=== PATIENT | female | born 1930 | race Caucasian/White ===

== ENCOUNTER 2017-04-13 22:28 | Emergency (ER) | payer OTHER ==
[~2017-04-13 22:28] MED LIST: FOSA35TA2 PO
[2017-04-13 22:30] VITALS: BP 196/93; PULSE 73; RESP 16; TEMP 98.5; O2SAT 96
[2017-04-13 22:56] VITALS: BP 177/94; PULSE 81; RESP 18; O2SAT 96
--- NOTE | 2017-04-13 23:01 | PD ---
HPI Chief Complaint: Respiratory Symptoms Time Seen by Provider: 22:46 Travel History International Travel<30 days: No Contact w/Intl Traveler<30days: No Traveled to known affect area: No History of Present Illness HPI Patient is an 86-year-old female who reports that she has a cough and shortness of breath for the last few days. She reports that this started about a month ago at which time she was given a Z-Bashir by her doctor and her symptoms cleared up. Now after about a month it has returned she has a cough rattling like mild shortness of breath denies she rested her distress she is not currently taking any medication she denies any past medical history of significance however triage her blood pressure is 177/83. She denies fever she denies sore throat she does have some nasal congestion and she has not seen another doctor for this recurrent episode she took 2 aspirin today to lower her temperature PFSH Past Medical History Medical History: Denies Significant Hx Diminished Hearing: No Past Surgical History Surgical History: No Previous Surgery Social History Alcohol Use: No Tobacco Use: No Substance Use: No Allergies-Medications (Allergen,Severity, Reaction): Coded Allergies: codeine (Unverified Adverse Reaction, Unknown, Flushing, 04/13/17) Reported Meds & Prescriptions Reported Meds & Active Scripts Active Guaifenesin Liq (Guaifenesin) 100 mg/5 ML Soln 100 Mg PO Q6H PRN Prednisone 50 Mg Tab 50 Mg PO DAILY Atrovent HFA 12.9 GM Inh (Ipratropium Clubb) 17 Mcg/Actuation Aer 2 Puff INH Q6HR PRN Levaquin (Levofloxacin) 500 Mg Tablet 500 Mg PO DAILY 7 Days Review of Systems Except as stated in HPI: all other systems reviewed are Neg Respiratory: Positive: Cough, Shortness of Breath Physical Exam Narrative GENERAL: no apparent distress nor signs of sepsis SKIN: Warm and dry. HEAD: Atraumatic. Normocephalic. EYES: Pupils equal and round. No scleral icterus. No injection or drainage. ENT: No nasal bleeding or discharge. Mucous membranes pink and moist. NECK: Trachea midline. No JVD. CARDIOVASCULAR: Regular rate and rhythm. RESPIRATORY: No accessory muscle use. crackles LLL minimal SAt O2 95 % RA GASTROINTESTINAL: Abdomen soft, non-tender, nondistended. Hepatic and splenic margins not palpable. MUSCULOSKELETAL: Extremities without clubbing, cyanosis, or edema. No obvious deformities. NEUROLOGICAL: Awake and alert. No obvious cranial nerve deficits. Motor grossly within normal limits. Five out of 5 muscle strength in the arms and legs. Normal speech. PSYCHIATRIC: Appropriate mood and affect; insight and judgment normal. Data Data Last Documented VS Orders Orders Guaifen-Cod 200-20 Mg/10ml Liq (Robituss (04/13/17 23:15) Prednisone (Deltasone) (04/13/17 23:15) Ipratropium Neb (Atrovent Neb) (04/13/17 23:15) Chest, Pa & Lat (04/13/17 ) Influenzae A/B Antigen (04/13/17 23:04) Group A Rapid Strep Screen (04/13/17 23:04) Guaifenesin Liq (Robitussin Liq) (04/13/17 23:30) Strep Culture (Group A) (04/13/17 23:00) Complete Blood Count With Diff (04/14/17 00:10) Comprehensive Metabolic Panel (04/14/17 00:10) Blood Culture (04/14/17 00:10) Levofloxacin 750 Mg Premix Inj (Levaquin (04/14/17 00:15) Ed Discharge Order (04/14/17 01:42) Labs Laboratory Tests Test 04/14/17 00:15 White Blood Count 3.1 TH/MM3 Red Blood Count 3.81 MIL/MM3 Hemoglobin 11.8 GM/DL Hematocrit 35.0 % Mean Corpuscular Volume 91.8 FL Mean Corpuscular Hemoglobin 31.0 PG Mean Corpuscular Hemoglobin Concent 33.7 % Red Cell Distribution Width 13.7 % Platelet Count 210 TH/MM3 Mean Platelet Volume 7.9 FL Neutrophils (%) (Auto) 59.3 % Lymphocytes (%) (Auto) 21.8 % Monocytes (%) (Auto) 14.1 % Eosinophils (%) (Auto) 4.2 % Basophils (%) (Auto) 0.6 % Neutrophils # (Auto) 1.8 TH/MM3 Lymphocytes # (Auto) 0.7 TH/MM3 Monocytes # (Auto) 0.4 TH/MM3 Eosinophils # (Auto) 0.1 TH/MM3 Basophils # (Auto) 0.0 TH/MM3 CBC Comment DIFF FINAL Differential Comment Blood Urea Nitrogen 18 MG/DL Creatinine 1.01 MG/DL Random Glucose 105 MG/DL Total Protein 6.9 GM/DL Albumin 3.4 GM/DL Calcium Level 8.4 MG/DL Alkaline Phosphatase 59 U/L Aspartate Amino Transf (AST/SGOT) 31 U/L Alanine Aminotransferase (ALT/SGPT) 23 U/L Total Bilirubin 0.2 MG/DL Sodium Level 140 MEQ/L Potassium Level 4.4 MEQ/L Chloride Level 107 MEQ/L Carbon Dioxide Level 26.8 MEQ/L Anion Gap 6 MEQ/L Estimat Glomerular Filtration Rate 52 ML/MIN MDM Medical Decision Making Medical Screen Exam Complete: Yes Emergency Medical Condition: Yes Differential Diagnosis Differential diagnosis includes upper respiratory infection versus pneumonia versus bronchitis versus influenza versus strep pharyngitis reactive airway disease Narrative Course Patient's chest x-ray shows blunting of the costophrenic angle and the anterior left portion of the lung and there is linear's densities that appeared to be to be in infiltrate and I'm calling a bacterial pneumonia. The radiologist thinks this is scarring but the blunting on the lateral shot me looks like infiltrate I 'm calling pneumonia and treating as such. She got Levaquin 750 IV in the ER plus methylprednisone Atrovent neb and I'm discharging her with the same to follow-up as an outpatient she had mild hypertension on arrival. Her pressure was 177/80 however with relaxation and time her pressure came down to 160/50 she safe for discharge with outpatient treatment for antibiotics for pneumonia left lower follow-up as an outpatient Diagnosis Primary Impression: Left lower lobe pneumonia Qualified Codes: J18.1 - Lobar pneumonia, unspecified organism Scripts Guaifenesin Liq (Guaifenesin Liq) 100 mg/5 ML Soln 100 MG PO Q6H Y for COUGH, #1 BOTTLE 0 Refills Prov: Yasmany Rodriguez MD 04/14/17 Prednisone (Prednisone) 50 Mg Tab 50 MG PO DAILY, #3 TAB 0 Refills Prov: Yasmany Rodriguez MD 04/14/17 Ipratropium HFA 12.9 GM Inh (Atrovent HFA 12.9 GM Inh) 17 Mcg/Actuation Aer 2 PUFF INH Q6HR Y for SHORTNESS OF BREATH, #1 INHALER 0 Refills Prov: Yasmany Rodriguez MD 04/14/17 Levofloxacin (Levaquin) 500 Mg Tablet 500 MG PO DAILY for Infection for 7 Days, #7 TAB 0 Refills Prov: Yasmany Rodriguez MD 04/14/17 Disposition: 01 DISCHARGE HOME Condition: Good Yasmany Rodriguez MD Apr 13, 2017 23:01
[2017-04-13] MEDS ORDERED: predniSONE 20 MG TAB PO ONE (23:15)
[2017-04-13] MEDS ORDERED: guaiFENesin/CODEINE SYRUP 200 MG/20 MG/10 ML CUP PO ONE (23:15)
[2017-04-13] MEDS ORDERED: RESP: IPRATROPIUM 0.5 MG/2.5 ML NEB NEB ONE (23:15)
[2017-04-13] MEDS ORDERED: guaiFENesin SOLUTION 200 MG/10 ML CUP PO ONE (23:30)
[2017-04-13 23:57] VITALS: BP 188/91; PULSE 66; RESP 18; O2SAT 96
--- NOTE | 2017-04-14 00:01 | RADRPT ---
EXAM DATE/TIME: 04/13/2017 23:43 [facility] COMPARISON: No previous studies available for comparison. INDICATIONS : Cough. MEDICAL HISTORY : None. SURGICAL HISTORY : None. ENCOUNTER: Initial ACUITY: 1 day PAIN SCORE: 0/10 LOCATION: Bilateral chest FINDINGS: There are scattered areas of linear densities in both lungs part of which appear to be chronic, howev er solid the appearance of linear atelectasis and focal consolidation is not seen. There is compressi on of lower thoracic spine not adequately characterized most likely osteoporotic. Heart and mediastin um are unremarkable for technique. CONCLUSION: 1. Compression of lower thoracic spine not adequately characterized on the order of 90% probably invo lving T12 vertebrae. There are no areas of mild wedging most likely osteoporotic. 2. Scattered areas of scarring and atelectasis in both lungs. Cr Martinez MD on April 13, 2017 at 23:58 Board Certified Radiologist. This report was verified electronically.
[2017-04-14] MEDS ORDERED: LEVOFLOXACIN 750 MG PREMIX INJ 150 ML IV ONE (00:15)
[2017-04-14 00:28] LABS: AUTOMATED NEUTROPHIL # 1.8 TH/MM3 (1.8-7.7); BASOPHIL % 0.6 % (0.0-2.0); EOSINOPHIL # 0.1 TH/MM3 (0-0.4); EOSINOPHIL % 4.2 % (0.0-4.0); HEMOGLOBIN 11.8 GM/DL (11.6-15.3); LYMPH % 21.8 % (9.0-44.0); LYMPHOCYTE # 0.7 TH/MM3 (1.0-4.8); MEAN CELL VOLUME 91.8 FL (80.0-100.0); MEAN CORPUSCULAR HGB CONC 33.7 % (32.0-36.0); MEAN PLATELET VOLUME 7.9 FL (7.0-11.0); MONO % 14.1 % (0.0-8.0); MONOCYTE # 0.4 TH/MM3 (0-0.9); NEUT % 59.3 % (16.0-70.0); PLATELET COUNT 210 TH/MM3 (150-450); RED BLOOD COUNT 3.81 MIL/MM3 (4.00-5.30); RED CELL DISTRIBUTION WIDTH 13.7 % (11.6-17.2); WHITE BLOOD COUNT 3.1 TH/MM3 (4.0-11.0)
[2017-04-14 00:29] VITALS: BP 169/86; PULSE 66; RESP 16; O2SAT 97
[2017-04-14 00:48] LABS: ALKALINE PHOSPHATASE 59 U/L (45-117); TOTAL BILIRUBIN ADULT 0.2 MG/DL (0.2-1.0); TOTAL PROTEIN 6.9 GM/DL (6.4-8.2)
[2017-04-14 00:49] LABS: ALBUMIN 3.4 GM/DL (3.4-5.0); ALT (GPT) 23 U/L (10-53); AST (GOT) 31 U/L (15-37); BICARBONATE 26.8 MEQ/L (21.0-32.0); BLOOD UREA NITROGEN 18 MG/DL (7-18); CALCIUM 8.4 MG/DL (8.5-10.1); CHLORIDE 107 MEQ/L (98-107); CREATININE 1.01 MG/DL (0.50-1.00); GLOMERULAR FILTRATION RATE 52 ML/MIN (>89); GLUCOSE,RANDOM 105 MG/DL (74-106); SODIUM (NA) 140 MEQ/L (136-145)
[2017-04-14] MEDS ORDERED: IPRA17I INH (01:25)
[2017-04-14] MEDS ORDERED: PRED50 PO (01:25)
[2017-04-14] MEDS ORDERED: GUAI100S7 PO (01:25)
[2017-04-14] MEDS ORDERED: LEVA500T33 PO (01:25)
== END 2017-04-14 02:15 | disposition home or self-care (01) ==
LOC: NEPE 22:28
DX: J18.1 Lobar pneumonia, unspecified organism (principal)
CPT/HCPCS: 71020; 80053; 85025; 87040; 87081; 87804; 87880; 94664; 96365; 99284; J1956; J7512; J7644